=== PATIENT | male | born 1950 | race Caucasian/White ===

== ENCOUNTER 2022-09-12 06:12 | Day surgery (SDC) | payer BC, OTHER ==
[2022-09-08 15:04] VITALS: BMI 25.9
[2022-09-12] MEDS ORDERED: CEFAZOLIN 2 GM in DEXTROSE 5%-WATER - 50 ML IVPB ONE (06:26)
[2022-09-12] MEDS ORDERED: CELECOXIB 200 MG CAPSULE PO ONE (06:26)
[2022-09-12] MEDS ORDERED: TRANEXAMIC ACID 1000 MG/10 ML VIAL IVPUSH ONE (06:26)
[2022-09-12] MEDS ORDERED: CELECOXIB 200 MG CAPSULE ONE (06:51)
[2022-09-12] MEDS ORDERED: ceFAZolin SODIUM 1 GM VIAL ONE (07:04)
[2022-09-12] MEDS ORDERED: VANCOMYCIN 1,000 MG VIAL (RESTRICTED TO ID ONLY) ONE (07:04)
[2022-09-12] MEDS ORDERED: PROPOFOL 60 ML ONE (07:19)
[2022-09-12] MEDS ORDERED: SUCCINYLCHOLINE CHLORIDE 200 MG/10 ML SYRINGE ONE (07:20)
[2022-09-12] MEDS ORDERED: MIDAZOLAM HCL 2 MG/2 ML SINGLE DOSE VIAL ONE (07:21)
[2022-09-12] MEDS ORDERED: ROPIVACAINE HCL 0.5% 30ML VIAL ONE (07:37)
[2022-09-12] MEDS ORDERED: MAG HYDROX/AL HYDROX/SIMETH 30 ML UNIT-DOSE CUP PO PRN (07:55)
[2022-09-12] MEDS ORDERED: ONDANSETRON 4 MG/2 ML VIAL IVPUSH PRN ×2 (07:55→10:00)
[2022-09-12] MEDS ORDERED: LACTATED RINGERS SOLUTION 1,000 ML IV SCH ×2 (08:00→10:00)
[2022-09-12] MEDS ORDERED: ACETAMINOPHEN 1000 MG/100 ML BAG IVPB ONE (10:00)
[2022-09-12] MEDS ORDERED: oxyCODONE HCL 5 MG TABLET PO PRN ×2 (10:00)
[2022-09-12] MEDS ORDERED: ACETAMINOPHEN INJECTION 100 ML IVPB ONE (10:41)
[2022-09-12] MEDS: CEFAZOLIN SODIUM 2 GM in DEXTROSE 5%-WATER 100 ML IVPB SCH ×2 (15:58→23:51)
[2022-09-12] MEDS: ACETAMINOPHEN 500 MG TABLET (FP) PO SCH ×2 (18:47→23:52)
[2022-09-12] MEDS: SENNOSIDES/DOCUSATE COMBO (SENNA PLUS) TABLET (UD) PO SCH (21:39)
[2022-09-12] MEDS: oxyCODONE HCL 10 MG SUSTAINED ACTING TABLET PO SCH (21:40)
[2022-09-13] MEDS: ACETAMINOPHEN 500 MG TABLET (FP) PO SCH ×3 (05:57→18:15)
[2022-09-13 07:57] LABS: HEMOGLOBIN 13.1 G/dL (11.7-16.9); MCH 29.9 pg (25.7-33.7); MCHC 33.6 g/dl (32.0-35.9); MEAN CELL VOLUME 88.9 fl (80-96); MEAN PLT VOLUME 7.3 fl (7.5-11.1); PLATELET COUNT 171.7 10^3/uL (134-434); RBC 4.39 10^6/uL (4.00-5.60); RDW 13.9 % (11.9-15.9); WHITE BLOOD COUNT 11.7 10^3/uL (4.0-10.8)
[2022-09-13] MEDS: ASPIRIN 325 MG TABLET PO SCH (08:33)
[2022-09-13] MEDS: oxyCODONE HCL 10 MG SUSTAINED ACTING TABLET PO SCH ×3 (10:46→21:55)
[2022-09-13] MEDS: SENNOSIDES/DOCUSATE COMBO (SENNA PLUS) TABLET (UD) PO SCH ×2 (10:47→21:55)
[2022-09-13] MEDS: PANTOPRAZOLE 40 MG TABLET PO SCH ×2 (10:47→10:51)
[2022-09-13] MEDS: MULTIVITAMINS (DAILY MVI) TABLET (FP) PO SCH ×2 (10:47→10:52)
[2022-09-14] MEDS: ACETAMINOPHEN 500 MG TABLET (FP) PO SCH ×3 (00:18→12:45)
[2022-09-14] MEDS ORDERED: SODIUM CHLORIDE 1,000 ML IV SCH (07:15)
[2022-09-14] MEDS: ASPIRIN 325 MG TABLET PO SCH (08:16)
[2022-09-14 09:21] VITALS: BP 147/63; PULSE 76; RESP 17; TEMP 98.2
[2022-09-14] MEDS: oxyCODONE HCL 10 MG SUSTAINED ACTING TABLET PO SCH (09:22)
[2022-09-14] MEDS: PANTOPRAZOLE 40 MG TABLET PO SCH (09:22)
[2022-09-14] MEDS: SENNOSIDES/DOCUSATE COMBO (SENNA PLUS) TABLET (UD) PO SCH (09:22)
[2022-09-14] MEDS: MULTIVITAMINS (DAILY MVI) TABLET (FP) PO SCH (09:22)
== END 2022-09-14 13:59 | disposition home health service (06) ==
LOC: FASUSAT 06:12 → FM/S 11:00 → FASUSAT 09-14 13:59
PROVIDERS: ATTEND Orthopaedic Surgery
PROC: 8E0Y0CZ Robotic Assisted Procedure of Lower Extremity, Open Approach (ICD-10-PCS; 2022-09-12)
PROC: 0SR90JA Replacement of Right Hip Joint with Synthetic Substitute, Uncemented, Open Approach (ICD-10-PCS; principal; 2022-09-12 08:30)
DX: M16.11 Unilateral primary osteoarthritis, right hip (principal)
CPT/HCPCS: 20985; 27130; C1776; S2900; 36415; 73502-TC-RT-FY; 85027; 88305-TC; 88311-TC; 94760; 97010-GP; 97116-GP; 97162-GP

== ENCOUNTER 2023-10-09 06:00 | Day surgery (SDC) | payer BC, OTHER ==
[2023-10-04 13:51] VITALS: BMI 25.9
[2023-10-09] MEDS ORDERED: VANCOMYCIN 1,000 MG VIAL (RESTRICTED TO ID ONLY) ONE (07:05)
[2023-10-09] MEDS ORDERED: ceFAZolin SODIUM 1 GM VIAL ONE ×2 (07:05→10:03)
[2023-10-09] MEDS ORDERED: MIDAZOLAM HCL 2 MG/2 ML SINGLE DOSE VIAL ONE ×2 (07:36→08:57)
[2023-10-09] MEDS ORDERED: BUPIVACAINE HCL/PF 0.5% (5 MG/ML) 30 ML VIAL IJ ONE (07:36)
[2023-10-09] MEDS ORDERED: DEXAMETHASONE SOD PHOSPHATE/PF 10 MG/ML SDV ONE (07:36)
[2023-10-09] MEDS ORDERED: SCOPOLAMINE HYDROBROMIDE 1 PATCH PATCH.TD72 ONE (07:55)
[2023-10-09] MEDS ORDERED: BUPIVACAINE HCL/PF 0.5% (5MG/ML) 10 ML VIAL ONE (08:42)
[2023-10-09] MEDS ORDERED: TRANEXAMIC ACID 1000 MG/10 ML VIAL ONE (10:03)
[2023-10-09] MEDS ORDERED: ONDANSETRON 4 MG/2 ML VIAL ONE (10:03)
[2023-10-09] MEDS ORDERED: ACETAMINOPHEN INJECTION 100 ML IVPB ONE (10:08)
[2023-10-09] MEDS ORDERED: KETOROLAC TROMETHAMINE 30 MG/1 ML VIAL ONE (10:08)
[2023-10-09] MEDS ORDERED: LACTATED RINGERS SOLUTION 1,000 ML IV SCH ×2 (10:15→10:30)
[2023-10-09] MEDS ORDERED: ONDANSETRON 4 MG/2 ML VIAL IVPUSH PRN (10:16)
[2023-10-09] MEDS ORDERED: ACETAMINOPHEN 1000 MG/100 ML BAG IVPB ONE (10:16)
[2023-10-09] MEDS ORDERED: oxyCODONE HCL 5 MG TABLET PO PRN ×2 (10:16)
[2023-10-09] MEDS: KETOROLAC TROMETHAMINE 30 MG/1 ML VIAL IVPUSH SCH ×3 (10:31→17:50)
[2023-10-09] MEDS: CEFAZOLIN SODIUM 2 GM in DEXTROSE 5%-WATER 100 ML IVPB SCH (17:48)
[2023-10-09] MEDS: ACETAMINOPHEN 500 MG TABLET (FP) PO SCH (17:51)
[2023-10-09] MEDS: oxyCODONE HCL 10 MG SUSTAINED ACTING TABLET PO SCH (21:23)
[2023-10-09] MEDS: SENNOSIDES/DOCUSATE COMBO (SENNA PLUS) TABLET (UD) PO SCH (21:23)
[2023-10-10] MEDS: ACETAMINOPHEN 500 MG TABLET (FP) PO SCH ×3 (00:53→12:50)
[2023-10-10] MEDS: CEFAZOLIN SODIUM 2 GM in DEXTROSE 5%-WATER 100 ML IVPB SCH (00:54)
[2023-10-10 02:10] VITALS: RESP 18
[2023-10-10 07:56] LABS: HEMATOCRIT 44.7 % (35.4-49); HEMOGLOBIN 14.7 G/dL (11.7-16.9); MCH 29.7 pg (25.7-33.7); MCHC 32.9 g/dl (32.0-35.9); MEAN CELL VOLUME 90.3 fl (80-96); MEAN PLT VOLUME 7.9 fl (7.5-11.1); PLATELET COUNT 185.4 10^3/uL (134-434); RBC 4.95 10^6/uL (4.00-5.60); RDW 14.4 % (11.9-15.9); WHITE BLOOD COUNT 16.4 10^3/uL (4.0-10.8)
[2023-10-10] MEDS ORDERED: ASPIRIN 325 MG TABLET PO SCH (08:00)
[2023-10-10] MEDS: SENNOSIDES/DOCUSATE COMBO (SENNA PLUS) TABLET (UD) PO SCH (09:32)
[2023-10-10] MEDS: oxyCODONE HCL 10 MG SUSTAINED ACTING TABLET PO SCH (09:32)
[2023-10-10] MEDS ORDERED: MULTIVITAMINS (DAILY MVI) TABLET (FP) PO SCH (10:00)
[2023-10-10] MEDS ORDERED: PANTOPRAZOLE 40 MG TABLET PO SCH (10:00)
[2023-10-10 10:38] VITALS: BP 128/58; PULSE 51; TEMP 98
== END 2023-10-10 16:19 | disposition home health service (06) ==
LOC: FASUSAT 06:00 → FM/S 11:30 → FASUSAT 10-10 16:19
PROVIDERS: ATTEND Orthopaedic Surgery
PROC: 8E0Y0CZ Robotic Assisted Procedure of Lower Extremity, Open Approach (ICD-10-PCS; 2023-10-09)
PROC: 0SRB0JA Replacement of Left Hip Joint with Synthetic Substitute, Uncemented, Open Approach (ICD-10-PCS; principal; 2023-10-09 09:04)
DX: M16.12 Unilateral primary osteoarthritis, left hip (principal)
CPT/HCPCS: 20985; 27130; C1776; S2900; 36415; 73502-TC-LT-FY; 85027; 88305-TC; 88311-TC; 94760; 97010-GP; 97116-GP; 97162-GP

== ENCOUNTER 2023-12-24 15:15 | Inpatient (IN) | payer BC, OTHER ==
[2023-12-24 15:46] VITALS: BMI 25.2
[2023-12-24] MEDS ORDERED: CEFEPIME HCL 2 GM VIAL (RESTRICTED TO ID) IVPB SCH (16:00)
[2023-12-24] MEDS ORDERED: VANCOMYCIN/WATER 1250 MG 1,250 MG/250 ML BAG IVPB ONE (16:22)
[2023-12-24] MEDS ORDERED: CEFEPIME 2 GM/100 ML BAG IVPB ONE (16:22)
[2023-12-24] MEDS: CEFEPIME 2 GM in DEXTROSE 5%-WATER 100 ML IVPB SCH (16:33)
[2023-12-24 17:01] LABS: CALCIUM 9.3 mg/dL (8.5-10.1)
[2023-12-24 17:02] LABS: ALBUMIN 2.7 g/dl (3.4-5.0); BLOOD UREA NITROGEN 15.5 mg/dL (7-18)
[2023-12-24 17:05] LABS: CREATININE 0.9 mg/dL (0.55-1.3)
[2023-12-24 17:06] LABS: BILIRUBIN,TOTAL 0.5 mg/dL (0.2-1); TOT PROT 8.6 g/dl (6.4-8.2)
[2023-12-24] MEDS ORDERED: KETOROLAC TROMETHAMINE 15 MG/ML VIAL IVPUSH PRN (17:28)
[2023-12-24] MEDS ORDERED: ACETAMINOPHEN 500 MG TABLET (FP) PO PRN (17:28)
[2023-12-24] MEDS: VANCOMYCIN/WATER 1250 MG 1,250 MG/250 ML BAG IVPB SCH (17:36)
[2023-12-24] MEDS: HEPARIN NA (PORCINE) 5,000 UNITS/ML 1ML VIAL SQ SCH (22:39)
[2023-12-25 08:33] LABS: BASO % 0.1 % (0-2.0); EOS % 0.1 % (0-4.5); HEMATOCRIT 33.6 % (35.4-49); HEMOGLOBIN 11.4 GM/dL (11.7-16.9); LYMPH % 14.5 % (8-40); MCH 27.2 pg (25.7-33.7); MCHC 33.9 g/dl (32.0-35.9); MEAN CELL VOLUME 80.2 fl (80-96); MEAN PLT VOLUME 6.7 fl (7.5-11.1); MONO % 6.7 % (3.8-10.2); NEUT % 78.6 % (42.8-82.8); PLATELET COUNT 435 10^3/uL (134-434); RBC 4.19 M/mm3 (4.00-5.60); RDW 16.2 % (11.9-15.9); WHITE BLOOD COUNT 10.2 K/mm3 (4.0-10.0)
[2023-12-25 08:44] LABS: POTASSIUM 4.9 mmol/L (3.5-5.1)
[2023-12-25 08:56] LABS: CALCIUM 9.2 mg/dL (8.5-10.1)
[2023-12-25 08:57] LABS: BLOOD UREA NITROGEN 15.2 mg/dL (7-18)
[2023-12-25 09:00] LABS: CREATININE 0.8 mg/dL (0.55-1.3)
[2023-12-25] MEDS ORDERED: INSULIN (NOVOLOG) ASPART 100 UNITS/ML 10ML VIAL ONE (21:15)
[2023-12-26 08:03] LABS: BASO % 0.8 % (0-2.0); HEMATOCRIT 34.4 % (35.4-49); HEMOGLOBIN 11.1 GM/dL (11.7-16.9); MCH 26.4 pg (25.7-33.7); MCHC 32.3 g/dl (32.0-35.9); MEAN CELL VOLUME 81.7 fl (80-96); MEAN PLT VOLUME 6.6 fl (7.5-11.1); MONO % 9.7 % (3.8-10.2); NEUT % 69.5 % (42.8-82.8); PLATELET COUNT 444 10^3/uL (134-434); RBC 4.21 M/mm3 (4.00-5.60); RDW 16.2 % (11.9-15.9)
[2023-12-26 08:19] LABS: INR 1.19 (0.83-1.09); PROTHROMBIN TIME (PATIENT) 13.8 SEC (9.7-13.0)
[2023-12-26 08:40] LABS: POTASSIUM 4.8 mmol/L (3.5-5.1)
[2023-12-26 08:43] LABS: BLOOD UREA NITROGEN 15.6 mg/dL (7-18); CALCIUM 9.3 mg/dL (8.5-10.1)
[2023-12-26 08:44] LABS: ALBUMIN 2.3 g/dl (3.4-5.0)
[2023-12-26 08:47] LABS: CREATININE 0.9 mg/dL (0.55-1.3)
[2023-12-26 08:48] LABS: TOT PROT 7.3 g/dl (6.4-8.2)
[2023-12-26 08:51] LABS: BILIRUBIN,TOTAL 0.5 mg/dL (0.2-1)
[2023-12-26] MEDS ORDERED: ceFAZolin SODIUM 1 GM VIAL ONE ×2 (12:07→13:17)
[2023-12-26] MEDS ORDERED: VANCOMYCIN 1,000 MG VIAL (RESTRICTED TO ID ONLY) ONE (12:07)
[2023-12-26] MEDS ORDERED: PROPOFOL 40 ML ONE (12:41)
[2023-12-26] MEDS ORDERED: LIDOCAINE HCL/PF 2% SDV 5ML VIAL ONE (12:45)
[2023-12-26] MEDS ORDERED: MIDAZOLAM HCL 2 MG/2 ML SINGLE DOSE VIAL ONE (12:46)
[2023-12-26] MEDS ORDERED: LACTATED RINGERS SOLUTION 1,000 ML IV SCH ×2 (13:30→14:56)
[2023-12-26] MEDS: ceFAZolin SODIUM 1 GM VIAL IVPB ONE (14:17)
[2023-12-26] MEDS: VANCOMYCIN 1,000 MG VIAL (RESTRICTED TO ID ONLY) IVPB ONE (14:34)
[2023-12-26] MEDS ORDERED: PROPOFOL 20 ML ONE (14:49)
[2023-12-26] MEDS ORDERED: ACETAMINOPHEN INJECTION 100 ML IVPB ONE (15:13)
[2023-12-26] MEDS ORDERED: ONDANSETRON 4 MG/2 ML VIAL IVPUSH PRN (15:13)
[2023-12-26] MEDS: LACTATED RINGERS SOLUTION 1,000 ML IV SCH (15:15)
[2023-12-26] MEDS: ACETAMINOPHEN 1000 MG/100 ML BAG IVPB ONE ×2 (15:22→15:56)
[2023-12-26] MEDS: VANCOMYCIN/WATER 1250 MG 1,250 MG/250 ML BAG IVPB SCH (16:30)
[2023-12-27] MEDS: ACETAMINOPHEN 500 MG TABLET (FP) PO PRN (07:14)
[2023-12-27 08:06] LABS: HEMATOCRIT 30.2 % (35.4-49); HEMOGLOBIN 9.7 GM/dL (11.7-16.9); MCH 26.3 pg (25.7-33.7); MCHC 32.3 g/dl (32.0-35.9); MEAN CELL VOLUME 81.3 fl (80-96); MEAN PLT VOLUME 6.7 fl (7.5-11.1); PLATELET COUNT 387 10^3/uL (134-434); RBC 3.71 M/mm3 (4.00-5.60); RDW 15.7 % (11.9-15.9); WHITE BLOOD COUNT 10.3 K/mm3 (4.0-10.0)
[2023-12-27 08:08] LABS: BASO % 0.3 % (0-2.0); EOS % 1.4 % (0-4.5); HEMOGLOBIN 9.7 GM/dL (11.7-16.9); LYMPH % 12.9 % (8-40); MCH 26.4 pg (25.7-33.7); MCHC 32.5 g/dl (32.0-35.9); MEAN CELL VOLUME 81.2 fl (80-96); MEAN PLT VOLUME 6.6 fl (7.5-11.1); MONO % 8.8 % (3.8-10.2); NEUT % 76.6 % (42.8-82.8); PLATELET COUNT 397 10^3/uL (134-434); RDW 15.9 % (11.9-15.9); WHITE BLOOD COUNT 10.2 K/mm3 (4.0-10.0)
[2023-12-27 08:43] LABS: POTASSIUM 5.3 mmol/L (3.5-5.1)
[2023-12-27 08:45] LABS: CALCIUM 8.5 mg/dL (8.5-10.1)
[2023-12-27 08:48] LABS: ALBUMIN 1.8 g/dl (3.4-5.0); BLOOD UREA NITROGEN 14.1 mg/dL (7-18)
[2023-12-27 08:50] LABS: CREATININE 0.8 mg/dL (0.55-1.3); TOT PROT 6.3 g/dl (6.4-8.2)
[2023-12-27 08:51] LABS: BILIRUBIN,TOTAL 0.5 mg/dL (0.2-1)
[2023-12-27] MEDS: MULTIVITAMINS (DAILY MVI) TABLET (FP) PO SCH (09:38)
[2023-12-27] MEDS ORDERED: MULTIVITAMINS (DAILY MVI) TABLET (FP) PO SCH (10:00)
[2023-12-27] MEDS: SODIUM ZIRCONIUM CYCLOSILICATE (LOKELMA) 5 GM PACKET PO SCH (10:55)
[2023-12-27] MEDS ORDERED: CEFAZOLIN SODIUM 2 GM in DEXTROSE 5%-WATER 100 ML IVPB SCH (14:45)
[2023-12-27] MEDS: CEFAZOLIN SODIUM 2 GM in DEXTROSE 5%-WATER 100 ML IVPB SCH (15:24)
[2023-12-27] MEDS: AMINO ACIDS/PROTEIN HYDROLYS 30 ML LIQUID.PKT PO SCH (17:39)
[2023-12-28 05:47] VITALS: BP 126/66; PULSE 82; RESP 18; TEMP 98.6
[2023-12-28 09:07] LABS: BASO % 0.3 % (0-2.0); EOS % 2.3 % (0-4.5); HEMATOCRIT 29.9 % (35.4-49); HEMOGLOBIN 10.2 GM/dL (11.7-16.9); LYMPH % 16.2 % (8-40); MCH 27.4 pg (25.7-33.7); MEAN CELL VOLUME 80.7 fl (80-96); MEAN PLT VOLUME 6.7 fl (7.5-11.1); NEUT % 70.2 % (42.8-82.8); PLATELET COUNT 420 10^3/uL (134-434); RDW 16.3 % (11.9-15.9); WHITE BLOOD COUNT 10.3 K/mm3 (4.0-10.0)
[2023-12-28 09:25] LABS: POTASSIUM 5.1 mmol/L (3.5-5.1)
[2023-12-28 09:29] LABS: ALBUMIN 2.1 g/dl (3.4-5.0); BLOOD UREA NITROGEN 12.6 mg/dL (7-18); CALCIUM 9.1 mg/dL (8.5-10.1); MAGNESIUM 2.1 mg/dL (1.8-2.4)
[2023-12-28 09:32] LABS: CREATININE 0.8 mg/dL (0.55-1.3)
[2023-12-28 09:34] LABS: BILIRUBIN,TOTAL 0.4 mg/dL (0.2-1); TOT PROT 6.8 g/dl (6.4-8.2)
== END 2023-12-28 16:07 | disposition home or self-care (01) | DRG 465 ==
LOC: JER 15:15 → JERBED 16:21 → J8W 20:12
PROVIDERS: ADMIT Internal Medicine; ATTEND Nurse Practitioner Acute Care
PROC: 3E10X8Z Irrigation of Skin and Mucous Membranes using Irrigating Substance (ICD-10-PCS; 2023-12-26)
PROC: 0SWB09Z Revision of Liner in Left Hip Joint, Open Approach (ICD-10-PCS; principal; 2023-12-26 13:00)
PROC: 0JBM0ZZ Excision of Left Upper Leg Subcutaneous Tissue and Fascia, Open Approach (ICD-10-PCS; 2023-12-26 13:00)
PROC: 02HV33Z Insertion of Infusion Device into Superior Vena Cava, Percutaneous Approach (ICD-10-PCS; 2023-12-28)
PROC: B548ZZA Ultrasonography of Superior Vena Cava, Guidance (ICD-10-PCS; 2023-12-28)
DX: T84.52XA Infection and inflammatory reaction due to internal left hip prosthesis, initial encounter (principal); E78.5 Hyperlipidemia, unspecified; Y83.9 Surgical procedure, unspecified as the cause of abnormal reaction of the patient, or of later complication, without mention of misadventure at the time of the procedure
CPT/HCPCS: 36415; 36569; 71045-TC-FY; 73502-TC-LT-FY; 80048; 80053; 83735; 85025; 85027; 85610; 86140; 86850; 86900; 86901; 87040; 87070; 87075; 87186; 87205; 88108; 88305-TC; 93005; 93010; 93306-TC; 94010; 94760; 97116-GP; 97161-GP; 99285-25; C1776; G0480; J0131; J1644

== ENCOUNTER → 2023-12-24 | Day surgery (SDC) | payer BC, OTHER ==
[2023-12-24 13:53] LABS: HEMATOCRIT 34.8 % (35.4-49); HEMOGLOBIN 11.2 GM/dL (11.7-16.9); MCH 26.4 pg (25.7-33.7); MCHC 32.2 g/dl (32.0-35.9); MEAN CELL VOLUME 82.1 fl (80-96); MEAN PLT VOLUME 6.8 fl (7.5-11.1); PLATELET COUNT 504 10^3/uL (134-434); RBC 4.24 M/mm3 (4.00-5.60); RDW 15.9 % (11.9-15.9)
[2023-12-24 14:51] LABS: ERYTHROCYTE SEDIMENTATION RATE 87 mm/hr (0-20)
[2023-12-24 16:57] LABS: BF WBC & OTHER NUCLEATED CELLS 14734 /mm3; BODY FLUID MONOCYTE 2 %
== END | disposition home or self-care (01) ==
LOC: JRADIR 12:43 → JRADCT 12:43 → EDSTATUS 13:30
PROVIDERS: ATTEND Orthopaedic Surgery
PROC: 0S9B30Z Drainage of Left Hip Joint with Drainage Device, Percutaneous Approach (ICD-10-PCS; principal; 2023-12-24)
DX: T84.52XA Infection and inflammatory reaction due to internal left hip prosthesis, initial encounter (principal); A49.01 Methicillin susceptible Staphylococcus aureus infection, unspecified site; Y79.2 Prosthetic and other implants, materials and accessory orthopedic devices associated with adverse incidents; Y92.9 Unspecified place or not applicable
CPT/HCPCS: 20610; 36415; 73700-TC-RT; 85027; 85651; 87070; 87075; 87102; 87116; 87186; 87205; 87206; 87210